=== PATIENT | male | born 1955 | race Caucasian/White ===

== ENCOUNTER → 2023-12-07 | Outpatient (CLI) | payer MEDICARE ==
--- NOTE | 2023-12-07 08:40 | MR ---
EXAMINATION TYPE: MR lumbar spine wo con DATE OF EXAM: 12/07/2023 COMPARISON: None HISTORY: Low back pain into left lower extremity TECHNIQUE: Multiplanar, multisequence images of the lumbar spine were acquired without IV contrast. FINDINGS: The lumbar vertebral bodies do have preserved heights. Grade 1 anterolisthesis of L4 on L5 without evidence of pars defects. Multilevel disc desiccation is present. The conus medullaris and the distal spinal cord do appear unremarkable with regards to their signal intensity and morphology. L1-L2: No significant disc pathology is identified. The spinal canal and neural foramen are patent. L2-L3: Minimal broad-based disc bulge without significant central canal stenosis. No significant alice ral foraminal stenosis. L3-L4: Broad-based disc bulge with bilateral facet arthropathy resulting in mild central canal stenos is. Mild right neural foraminal stenosis. The left neural foramen is patent. L4-L5: Grade 1 anterolisthesis with uncovering of the disc. Broad-based disc bulge with significant b ilateral ligament flavum buckling and facet arthropathy resulting in moderate central canal stenosis. Neural canals are mildly narrowed bilaterally. Prominent anterior epidural fat. L5-S1: Broad-based disc bulge without significant mass effect upon the thecal sac. Facet joints are enlarged with mild bilateral ligamentum flavum buckling. Neural canals are mildly narrowed bilatera lly. Prominent anterior epidural fat. Other significant findings: None. IMPRESSION: 1. Moderate multilevel degenerative disease and facet arthropathy which is most pronounced at L4-L5 resulting in moderate central canal stenosis. 2. Grade 1 anterolisthesis of L4 on L5 without evidence of pars defects. [facility], , 12/07/2023 8:37 AM
== END | disposition home or self-care (01) ==
LOC: RADMRIMAIN 06:26
PROVIDERS: ATTEND Psychiatry & Neurology Neurology
CPT/HCPCS: 72148